=== PATIENT | female | born 1970 | race Asian ===

== ENCOUNTER 2018-07-18 15:46 | Inpatient (IN) | payer OTHER ==
[~2018-07-18] VITALS: Ht 160 cm; Wt 93.0 kg
[2018-07-18 15:53] VITALS: BP_SYST 154
[2018-07-18] MEDS ORDERED: MORPHINE 4 MG/ML INJ. SYRINGE IVP ONE (17:30)
[2018-07-18] MEDS ORDERED: FUROSEMIDE 20 MG/2 ML VIAL IVP ONE (17:30)
[2018-07-18] MEDS ORDERED: IOHEXOL 100 ML IV ONE (17:38)
[2018-07-18 17:40] LABS: CALCIUM 7.9 mg/dL (8.4-11.0); CREATININE 1.16 mg/dL (0.55-1.30)
[2018-07-18 17:49] LABS: ALBUMIN 1.4 g/dL (3.4-4.8); TOTAL BILIRUBIN 0.2 mg/dL (0.0-1.0)
[2018-07-18 17:54] LABS: POTASSIUM 4.2 mmol/L (3.5-5.1)
[2018-07-18 18:04] LABS: PROTHROMBIN TIME 9.8 SECS (9.5-12.5)
[2018-07-18 18:21] LABS: MEAN CORPUSCULAR HEMOGLOBIN 26 pg (27-31); MEAN CORPUSCULAR VOLUME 81 fL (79.0-98.0); WHITE BLOOD COUNT (AUTO) 4.3 K/uL (4.8-10.8)
[2018-07-18 18:23] LABS: EOSINOPHILS # (AUTO) 0.1 K/uL (0.0-0.4); HEMATOCRIT 44.4 % (36-48); HEMOGLOBIN 14.5 g/dL (12.0-16.0); MEAN CORPUSCULAR HGB CONC 33 % (32-36); NEUTROPHILS # (AUTO) 3.3 K/uL (1.8-7.7); RED BLOOD CELL COUNT(AUTO) 5.47 MIL/uL (4.2-6.2); RED CELL DISTRIBUTION WIDTH 14.4 % (9.0-15.0)
[2018-07-18 18:24] LABS: BASOPHILS % (AUTO) 0.7 % (0.0-2.0); EOSINOPHILS % (AUTO) 1.9 % (0.0-4.0); LYMPHOCYTES # (AUTO) 0.5 K/uL (1.0-5.5); LYMPHOCYTES % (AUTO) 11.3 % (20.5-51.5); MONOCYTES # (AUTO) 0.5 K/uL (0.0-1.0); MONOCYTES % (AUTO) 10.7 % (1.7-9.3); NEUTROPHILS % (AUTO) 75.4 % (40.0-70.0); PLATELET COUNT (AUTO) 94 K/uL (130-430)
[2018-07-18] MEDS ORDERED: AZIT250T PO (19:44)
[2018-07-18] MEDS ORDERED: AMLO5TAB4 PO (19:44)
[2018-07-18] MEDS ORDERED: HYDR25TA4 PO (19:44)
[2018-07-18] MEDS ORDERED: LOPERAMIDE HCL 2 MG CAPSULE PO PRN (21:00)
[2018-07-18] MEDS ORDERED: DIPHENHYDRAMINE INJ 50 MG/ML VIAL IVP PRN (21:00)
[2018-07-18] MEDS ORDERED: MORPHINE 4 MG/ML INJ. SYRINGE IVP PRN ×2 (21:00)
[2018-07-18] MEDS ORDERED: ONDANSETRON HCL 4 MG/2 ML VIAL IVP PRN (21:00)
[2018-07-18] MEDS ORDERED: CARVEDILOL 12.5 MG TABLET (COREG) PO ONE (21:15)
[2018-07-18] MEDS ORDERED: metroNIDAZOLE 500 mg/NS 200 ML IV ONE (21:25)
[2018-07-18] MEDS ORDERED: CIPROFLOXACIN LACT 400 MG/D5W 200 ML IV ONE (21:26)
[2018-07-18] MEDS: metroNIDAZOLE 500 mg/NS 100 ML IV SCH (21:49)
[2018-07-18] MEDS: CIPROFLOXACIN LACT 400 MG/D5W 200 ML IV SCH (21:50)
[2018-07-19 05:31] VITALS: BP_SYST 168
[2018-07-19] MEDS: metroNIDAZOLE 500 mg/NS 100 ML IV SCH ×3 (06:48→22:07)
[2018-07-19 07:23] LABS: INR 0.9 (0.8-1.2); PROTHROMBIN TIME 9.1 SECS (9.5-12.5)
[2018-07-19 07:42] LABS: ALBUMIN 1.1 g/dL (3.4-4.8); CALCIUM 7.7 mg/dL (8.4-11.0); CREATININE 1.32 mg/dL (0.55-1.30); FREE T4 (FREE THYROXINE) 0.6 ng/dL (0.6-1.6); PHOSPHORUS 4.6 mg/dL (2.7-4.5); POTASSIUM 4.2 mmol/L (3.5-5.1); THYROID STIMULATING HORMONE 1.95 uIu/mL (0.34-4.82); TOTAL BILIRUBIN 0.3 mg/dL (0.0-1.0)
[2018-07-19 08:00] VITALS: BP_SYST 134
[2018-07-19] MEDS ORDERED: LISINOPRIL 10 MG TABLET (PRINIVIL) PO SCH (09:00)
[2018-07-19 09:21] LABS: HEMOGLOBIN 12.6 g/dL (12.0-16.0); RED BLOOD CELL COUNT(AUTO) 4.73 MIL/uL (4.2-6.2); WHITE BLOOD COUNT (AUTO) 3.7 K/uL (4.8-10.8)
[2018-07-19 09:22] LABS: HEMATOCRIT 38.9 % (36-48); MEAN CORPUSCULAR HEMOGLOBIN 27 pg (27-31); MEAN CORPUSCULAR HGB CONC 33 % (32-36); MEAN CORPUSCULAR VOLUME 82 fL (79.0-98.0); PLATELET COUNT (AUTO) 75 K/uL (130-430); RED CELL DISTRIBUTION WIDTH 14.5 % (9.0-15.0)
[2018-07-19 09:50] LABS: BASOPHILS % (AUTO) 0.5 % (0.0-2.0); EOSINOPHILS % (AUTO) 1.3 % (0.0-4.0); LYMPHOCYTES # (AUTO) 0.6 K/uL (1.0-5.5); LYMPHOCYTES % (AUTO) 15.8 % (20.5-51.5); MONOCYTES # (AUTO) 0.6 K/uL (0.0-1.0); MONOCYTES % (AUTO) 14.9 % (1.7-9.3); NEUTROPHILS # (AUTO) 2.5 K/uL (1.8-7.7); NEUTROPHILS % (AUTO) 67.5 % (40.0-70.0)
[2018-07-19] MEDS: CIPROFLOXACIN LACT 400 MG/D5W 200 ML IV SCH (10:20)
[2018-07-19] MEDS ORDERED: CHOLECALCIFEROL (VITAMIN D3) 2,000 UNIT TABLET PO ONE (11:45)
[2018-07-19] MEDS ORDERED: NEPHROVITE, (FOLIC ACID/VITAMIN B COMP W-C 1 TAB) PO ONE (11:45)
[2018-07-19 12:57] VITALS: BP_SYST 151
[2018-07-19 15:58] LABS: BILIRUBIN,URINE 1+ (NEGATIVE); BLOOD, URINE 3+ (NEGATIVE); CLARITY/URINE CLEAR (CLEAR); COLOR,URINE YELLOW (YELLOW); GLUCOSE,URINE NEGATIVE (NEGATIVE); KETONES,URINE NEGATIVE (NEGATIVE); LEUKOCYTE ESTERASE ,URINE NEGATIVE (NEGATIVE); NITRITE, URINE NEGATIVE (NEGATIVE); PH,URINE 5.5 (5.0-8.0); PROTEIN URINE 3+ (NEGATIVE); UROBILINOGEN,URINE 0.2 (0.2-1.0)
[2018-07-19 16:02] LABS: BACTERIA,URINE MODERATE /HPF (None Seen)
[2018-07-19 16:03] LABS: MUCUS,URINE 1+ /LPF (None Seen)
[2018-07-19 17:17] VITALS: BP_SYST 144
[2018-07-19] MEDS: ACETAMINOPHEN 325 MG TABLET PO PRN (19:01)
[2018-07-19] MEDS ORDERED: FUROSEMIDE 40 MG TABLET PO SCH (21:00)
[2018-07-19] MEDS: CIPROFLOXACIN HCL 500 MG TABLET PO SCH (22:06)
[2018-07-19 22:07] VITALS: BP_SYST 144
[2018-07-20 00:17] VITALS: BP_SYST 155
[2018-07-20] MEDS: metroNIDAZOLE 500 mg/NS 100 ML IV SCH ×3 (05:03→21:50)
[2018-07-20 07:37] LABS: HEMATOCRIT 40.6 % (36-48); HEMOGLOBIN 12.9 g/dL (12.0-16.0); MEAN CORPUSCULAR HEMOGLOBIN 26 pg (27-31); MEAN CORPUSCULAR VOLUME 82 fL (79.0-98.0); RED BLOOD CELL COUNT(AUTO) 4.96 MIL/uL (4.2-6.2); WHITE BLOOD COUNT (AUTO) 3.2 K/uL (4.8-10.8)
[2018-07-20 07:38] LABS: BASOPHILS % (AUTO) 0.5 % (0.0-2.0); EOSINOPHILS # (AUTO) 0.1 K/uL (0.0-0.4); EOSINOPHILS % (AUTO) 2.6 % (0.0-4.0); LYMPHOCYTES # (AUTO) 0.6 K/uL (1.0-5.5); LYMPHOCYTES % (AUTO) 18.2 % (20.5-51.5); MEAN CORPUSCULAR HGB CONC 32 % (32-36); MONOCYTES # (AUTO) 0.5 K/uL (0.0-1.0); MONOCYTES % (AUTO) 15.9 % (1.7-9.3); PLATELET COUNT (AUTO) 90 K/uL (130-430); RED CELL DISTRIBUTION WIDTH 14.6 % (9.0-15.0)
[2018-07-20 07:41] LABS: CALCIUM 7.7 mg/dL (8.4-11.0); CREATININE 1.52 mg/dL (0.55-1.30)
[2018-07-20 08:00] VITALS: BP_SYST 157
[2018-07-20] MEDS ORDERED: FUROSEMIDE 40 MG TABLET PO SCH (09:00)
[2018-07-20] MEDS: LISINOPRIL 10 MG TABLET (PRINIVIL) PO SCH (09:19)
[2018-07-20] MEDS: CHOLECALCIFEROL (VITAMIN D3) 2,000 UNIT TABLET PO SCH (09:20)
[2018-07-20] MEDS: LACTOBACILLUS RHAMNOSUS GG 1 CAP CAPSULE PO SCH ×2 (09:20→21:49)
[2018-07-20] MEDS: NEPHROVITE, (FOLIC ACID/VITAMIN B COMP W-C 1 TAB) PO SCH (09:20)
[2018-07-20] MEDS: CIPROFLOXACIN HCL 500 MG TABLET PO SCH ×2 (10:45→21:49)
[2018-07-20 11:22] LABS: NEUTROPHILS % (AUTO) 62.8 % (40.0-70.0)
[2018-07-20 12:45] VITALS: BP_SYST 167
[2018-07-20] MEDS ORDERED: cloNIDine HCL 0.1 MG TABLET PO PRN (16:00)
[2018-07-20 16:02] VITALS: BP_SYST 168
[2018-07-20] MEDS ORDERED: CARVEDILOL 12.5 MG TABLET (COREG) PO ONE (16:45)
[2018-07-20 21:44] VITALS: BP_SYST 138
[2018-07-20] MEDS: ACETAMINOPHEN 325 MG TABLET PO PRN (23:24)
[2018-07-21 01:29] VITALS: BP_SYST 126
[2018-07-21] MEDS: metroNIDAZOLE 500 mg/NS 100 ML IV SCH ×3 (05:53→21:20)
[2018-07-21 06:45] LABS: CALCIUM 7.9 mg/dL (8.4-11.0); CREATININE 1.68 mg/dL (0.55-1.30)
[2018-07-21 06:49] LABS: BILIRUBIN,URINE 1+ (NEGATIVE); BLOOD, URINE 3+ (NEGATIVE); COLOR,URINE YELLOW (YELLOW); GLUCOSE,URINE NEGATIVE (NEGATIVE); KETONES,URINE TRACE (NEGATIVE); LEUKOCYTE ESTERASE ,URINE NEGATIVE (NEGATIVE); NITRITE, URINE POSITIVE (NEGATIVE); PH,URINE 5.5 (5.0-8.0); PROTEIN URINE 3+ (NEGATIVE); UROBILINOGEN,URINE 0.2 (0.2-1.0)
[2018-07-21 07:00] LABS: ALBUMIN 1.3 g/dL (3.4-4.8); PHOSPHORUS 4.9 mg/dL (2.7-4.5); TOTAL BILIRUBIN 0.2 mg/dL (0.0-1.0)
[2018-07-21 07:58] VITALS: BP_SYST 160
[2018-07-21 08:02] LABS: HEMATOCRIT 41.4 % (36-48); HEMOGLOBIN 13.3 g/dL (12.0-16.0); RED BLOOD CELL COUNT(AUTO) 5.02 MIL/uL (4.2-6.2); WHITE BLOOD COUNT (AUTO) 3.2 K/uL (4.8-10.8)
[2018-07-21 08:03] LABS: MEAN CORPUSCULAR HEMOGLOBIN 27 pg (27-31); MEAN CORPUSCULAR HGB CONC 32 % (32-36); MEAN CORPUSCULAR VOLUME 83 fL (79.0-98.0); PLATELET COUNT (AUTO) 110 K/uL (130-430); RED CELL DISTRIBUTION WIDTH 14.6 % (9.0-15.0)
[2018-07-21 08:04] LABS: BASOPHILS % (AUTO) 0.8 % (0.0-2.0); EOSINOPHILS # (AUTO) 0.1 K/uL (0.0-0.4); EOSINOPHILS % (AUTO) 3.1 % (0.0-4.0); LYMPHOCYTES # (AUTO) 0.8 K/uL (1.0-5.5); LYMPHOCYTES % (AUTO) 23.8 % (20.5-51.5); MONOCYTES # (AUTO) 0.5 K/uL (0.0-1.0); MONOCYTES % (AUTO) 15.7 % (1.7-9.3); NEUTROPHILS # (AUTO) 1.8 K/uL (1.8-7.7); NEUTROPHILS % (AUTO) 56.6 % (40.0-70.0)
[2018-07-21 08:56] LABS: BACTERIA,URINE MODERATE /HPF (None Seen); CLARITY/URINE SLIGHTLY HAZY (CLEAR); RBC,URINE 20-50 /HPF (0-3); WBC,URINE 0-3 /HPF (0-3)
[2018-07-21] MEDS: LACTOBACILLUS RHAMNOSUS GG 1 CAP CAPSULE PO SCH ×2 (09:14→21:20)
[2018-07-21] MEDS: CARVEDILOL 12.5 MG TABLET (COREG) PO SCH ×2 (09:14→21:21)
[2018-07-21] MEDS: NEPHROVITE, (FOLIC ACID/VITAMIN B COMP W-C 1 TAB) PO SCH (09:15)
[2018-07-21] MEDS: CHOLECALCIFEROL (VITAMIN D3) 2,000 UNIT TABLET PO SCH (09:16)
[2018-07-21] MEDS: LISINOPRIL 10 MG TABLET (PRINIVIL) PO SCH (09:16)
[2018-07-21] MEDS: CIPROFLOXACIN HCL 500 MG TABLET PO SCH ×2 (09:17→21:20)
[2018-07-21 11:54] VITALS: BP_SYST 144
[2018-07-21 16:06] VITALS: BP_SYST 136
[2018-07-21 20:00] VITALS: BP_SYST 143
[2018-07-21] MEDS: ACETAMINOPHEN 325 MG TABLET PO PRN (21:19)
[2018-07-22 00:47] VITALS: BP_SYST 128
[2018-07-22] MEDS: metroNIDAZOLE 500 mg/NS 100 ML IV SCH ×2 (05:13→13:01)
[2018-07-22] MEDS: CHOLECALCIFEROL (VITAMIN D3) 2,000 UNIT TABLET PO SCH ×2 (08:10→20:58)
[2018-07-22] MEDS: NEPHROVITE, (FOLIC ACID/VITAMIN B COMP W-C 1 TAB) PO SCH (08:10)
[2018-07-22] MEDS: CARVEDILOL 12.5 MG TABLET (COREG) PO SCH ×2 (08:11→20:58)
[2018-07-22] MEDS: LACTOBACILLUS RHAMNOSUS GG 1 CAP CAPSULE PO SCH ×2 (08:11→20:58)
[2018-07-22] MEDS: LISINOPRIL 10 MG TABLET (PRINIVIL) PO SCH (08:12)
[2018-07-22 08:13] VITALS: BP_SYST 160
[2018-07-22 09:11] LABS: POTASSIUM 4.2 mmol/L (3.5-5.1)
[2018-07-22 09:21] LABS: CALCIUM 7.8 mg/dL (8.4-11.0); CREATININE 1.59 mg/dL (0.55-1.30)
[2018-07-22] MEDS: CIPROFLOXACIN HCL 500 MG TABLET PO SCH (10:07)
[2018-07-22 11:38] LABS: WHITE BLOOD COUNT (AUTO) 4.2 K/uL (4.8-10.8)
[2018-07-22 11:39] LABS: HEMATOCRIT 42.2 % (36-48); HEMOGLOBIN 13.5 g/dL (12.0-16.0); MEAN CORPUSCULAR HEMOGLOBIN 26 pg (27-31); MEAN CORPUSCULAR HGB CONC 32 % (32-36); MEAN CORPUSCULAR VOLUME 82 fL (79.0-98.0); PLATELET COUNT (AUTO) 119 K/uL (130-430); RED BLOOD CELL COUNT(AUTO) 5.14 MIL/uL (4.2-6.2); RED CELL DISTRIBUTION WIDTH 14.7 % (9.0-15.0)
[2018-07-22 11:41] LABS: BASOPHILS % (AUTO) 0.7 % (0.0-2.0); EOSINOPHILS # (AUTO) 0.1 K/uL (0.0-0.4); EOSINOPHILS % (AUTO) 2.1 % (0.0-4.0); LYMPHOCYTES # (AUTO) 0.5 K/uL (1.0-5.5); LYMPHOCYTES % (AUTO) 12.6 % (20.5-51.5); MONOCYTES # (AUTO) 0.5 K/uL (0.0-1.0); MONOCYTES % (AUTO) 12.2 % (1.7-9.3); NEUTROPHILS % (AUTO) 72.4 % (40.0-70.0)
[2018-07-22 12:27] VITALS: BP_SYST 151
[2018-07-22 14:00] VITALS: BP_SYST 151
[2018-07-22] MEDS: cefTRIAXone 1 GM in D5W 50 ML IV SCH (15:18)
[2018-07-22] MEDS: IPRATROPIUM/ALBUTEROL SULFATE 3 ML AMPUL.NEB (DUONEB) INH PRN (15:28)
[2018-07-22 16:49] VITALS: BP_SYST 163
[2018-07-22 20:00] VITALS: BP_SYST 154
[2018-07-22] MEDS: ACETAMINOPHEN 325 MG TABLET PO PRN (20:57)
[2018-07-23] VITALS (8 sets, daily range): BP systolic 139–191
[2018-07-23] MEDS: IPRATROPIUM/ALBUTEROL SULFATE 3 ML AMPUL.NEB (DUONEB) INH PRN ×3 (03:35→16:14)
[2018-07-23 06:52] LABS: CALCIUM 7.8 mg/dL (8.4-11.0); CREATININE 1.67 mg/dL (0.55-1.30); POTASSIUM 4.2 mmol/L (3.5-5.1)
[2018-07-23] MEDS: LACTOBACILLUS RHAMNOSUS GG 1 CAP CAPSULE PO SCH ×2 (08:10→20:54)
[2018-07-23] MEDS: LISINOPRIL 10 MG TABLET (PRINIVIL) PO SCH (08:12)
[2018-07-23] MEDS: CARVEDILOL 12.5 MG TABLET (COREG) PO SCH (08:13)
[2018-07-23] MEDS: NEPHROVITE, (FOLIC ACID/VITAMIN B COMP W-C 1 TAB) PO SCH (08:13)
[2018-07-23] MEDS: CHOLECALCIFEROL (VITAMIN D3) 2,000 UNIT TABLET PO SCH ×2 (08:13→20:54)
[2018-07-23] MEDS ORDERED: NEPHROVITE, (FOLIC ACID/VITAMIN B COMP W-C 1 TAB) PO SCH (12:45)
[2018-07-23] MEDS ORDERED: cloNIDine HCL 0.1 MG TABLET PO PRN (12:45)
[2018-07-23] MEDS ORDERED: PROMETHAZINE-DM 6.25 MG-15 MG/5 ML UDC PO PRN (12:45)
[2018-07-23] MEDS: cefTRIAXone 1 GM in D5W 50 ML IV SCH (14:57)
[2018-07-23] MEDS: CARVEDILOL 25 MG TABLET (COREG) PO SCH (20:54)
[2018-07-23] MEDS: ACETAMINOPHEN 325 MG TABLET PO PRN (21:12)
[2018-07-24 00:47] VITALS: BP_SYST 146
[2018-07-24] MEDS: IPRATROPIUM/ALBUTEROL SULFATE 3 ML AMPUL.NEB (DUONEB) INH PRN ×2 (05:53→18:18)
[2018-07-24 06:48] LABS: CALCIUM 8.1 mg/dL (8.4-11.0); CREATININE 2.11 mg/dL (0.55-1.30); POTASSIUM 4.1 mmol/L (3.5-5.1)
[2018-07-24 07:41] VITALS: BP_SYST 159
[2018-07-24 08:15] LABS: EOSINOPHILS % (AUTO) 4.1 % (0.0-4.0); HEMATOCRIT 42.5 % (36-48); HEMOGLOBIN 13.6 g/dL (12.0-16.0); LYMPHOCYTES % (AUTO) 15.4 % (20.5-51.5); MEAN CORPUSCULAR HEMOGLOBIN 26 pg (27-31); MEAN CORPUSCULAR HGB CONC 32 % (32-36); MEAN CORPUSCULAR VOLUME 82 fL (79.0-98.0); MONOCYTES % (AUTO) 14.1 % (1.7-9.3); PLATELET COUNT (AUTO) 114 K/uL (130-430); RED CELL DISTRIBUTION WIDTH 14.7 % (9.0-15.0); WHITE BLOOD COUNT (AUTO) 4.3 K/uL (4.8-10.8)
[2018-07-24 08:16] LABS: BASOPHILS % (AUTO) 0.4 % (0.0-2.0); EOSINOPHILS # (AUTO) 0.2 K/uL (0.0-0.4); LYMPHOCYTES # (AUTO) 0.7 K/uL (1.0-5.5); MONOCYTES # (AUTO) 0.6 K/uL (0.0-1.0); NEUTROPHILS # (AUTO) 2.8 K/uL (1.8-7.7)
[2018-07-24] MEDS: LISINOPRIL 10 MG TABLET (PRINIVIL) PO SCH (08:36)
[2018-07-24] MEDS: NEPHROVITE, (FOLIC ACID/VITAMIN B COMP W-C 1 TAB) PO SCH (08:37)
[2018-07-24] MEDS: CARVEDILOL 25 MG TABLET (COREG) PO SCH ×2 (08:37→21:08)
[2018-07-24] MEDS: CHOLECALCIFEROL (VITAMIN D3) 2,000 UNIT TABLET PO SCH ×2 (08:38→21:08)
[2018-07-24] MEDS: LACTOBACILLUS RHAMNOSUS GG 1 CAP CAPSULE PO SCH ×2 (08:38→21:08)
[2018-07-24 12:51] VITALS: BP_SYST 155
[2018-07-24] MEDS: cefTRIAXone 1 GM in D5W 50 ML IV SCH (14:36)
[2018-07-24] MEDS ORDERED: NACL 0.9% 1,000 ML IV SCH (16:00)
[2018-07-24 16:52] VITALS: BP_SYST 148
[2018-07-24] MEDS: ACETAMINOPHEN 325 MG TABLET PO PRN (18:03)
[2018-07-24 21:08] VITALS: BP_SYST 158
[2018-07-25] MEDS: ACETAMINOPHEN 325 MG TABLET PO PRN ×3 (00:24→22:33)
[2018-07-25 01:51] VITALS: BP_SYST 140
[2018-07-25] MEDS: IPRATROPIUM/ALBUTEROL SULFATE 3 ML AMPUL.NEB (DUONEB) INH PRN ×3 (04:48→23:06)
[2018-07-25 06:15] LABS: CALCIUM 7.7 mg/dL (8.4-11.0); CREATININE 2.43 mg/dL (0.55-1.30); POTASSIUM 4.9 mmol/L (3.5-5.1)
[2018-07-25 06:22] LABS: ALBUMIN 1.1 g/dL (3.4-4.8); TOTAL BILIRUBIN 0.2 mg/dL (0.0-1.0)
[2018-07-25 07:49] LABS: HEMATOCRIT 38.2 % (36-48); HEMOGLOBIN 12.5 g/dL (12.0-16.0); MEAN CORPUSCULAR HEMOGLOBIN 27 pg (27-31); MEAN CORPUSCULAR HGB CONC 33 % (32-36); MEAN CORPUSCULAR VOLUME 83 fL (79.0-98.0); RED BLOOD CELL COUNT(AUTO) 4.62 MIL/uL (4.2-6.2); RED CELL DISTRIBUTION WIDTH 14.3 % (9.0-15.0)
[2018-07-25 07:50] LABS: PLATELET COUNT (AUTO) 119 K/uL (130-430)
[2018-07-25] MEDS: CHOLECALCIFEROL (VITAMIN D3) 2,000 UNIT TABLET PO SCH ×2 (08:15→20:06)
[2018-07-25] MEDS: CARVEDILOL 25 MG TABLET (COREG) PO SCH ×2 (08:15→20:04)
[2018-07-25] MEDS: NEPHROVITE, (FOLIC ACID/VITAMIN B COMP W-C 1 TAB) PO SCH (08:15)
[2018-07-25] MEDS: LACTOBACILLUS RHAMNOSUS GG 1 CAP CAPSULE PO SCH ×2 (08:15→20:04)
[2018-07-25 11:03] LABS: BASOPHILS % (MANUAL) 0 % (0-2); EOSINOPHILS % (MANUAL) 5 % (0-7); LYMPHOCYTES % (MANUAL) 19 % (20-46); MONOCYTES % (MANUAL) 11 % (0-11)
[2018-07-25 12:52] VITALS: BP_SYST 122
[2018-07-25 15:05] VITALS: BP_SYST 155
[2018-07-25] MEDS: cefTRIAXone 1 GM in D5W 50 ML IV SCH (15:05)
[2018-07-25 16:45] VITALS: BP_SYST 155
[2018-07-25 19:47] VITALS: BP_SYST 182
[2018-07-25 22:29] VITALS: BP_SYST 140
[2018-07-26 06:08] VITALS: BP_SYST 163
[2018-07-26 08:04] VITALS: BP_SYST 157
[2018-07-26] MEDS: CHOLECALCIFEROL (VITAMIN D3) 2,000 UNIT TABLET PO SCH ×2 (09:02→21:18)
[2018-07-26] MEDS: NEPHROVITE, (FOLIC ACID/VITAMIN B COMP W-C 1 TAB) PO SCH (09:02)
[2018-07-26] MEDS: LACTOBACILLUS RHAMNOSUS GG 1 CAP CAPSULE PO SCH ×2 (09:02→21:17)
[2018-07-26] MEDS: CARVEDILOL 25 MG TABLET (COREG) PO SCH ×2 (09:03→21:18)
[2018-07-26] MEDS: IPRATROPIUM/ALBUTEROL SULFATE 3 ML AMPUL.NEB (DUONEB) INH PRN ×2 (10:52→20:29)
[2018-07-26 11:02] LABS: CALCIUM 7.8 mg/dL (8.4-11.0); CREATININE 2.5 mg/dL (0.55-1.30); POTASSIUM 5.4 mmol/L (3.5-5.1)
[2018-07-26] MEDS ORDERED: SODIUM POLYSTYRENE SULFONATE 15 GM/60 ML UDBTL PO ONE (12:15)
[2018-07-26 13:12] VITALS: BP_SYST 138
[2018-07-26] MEDS: ACETAMINOPHEN 325 MG TABLET PO PRN (14:46)
[2018-07-26 16:51] VITALS: BP_SYST 132
[2018-07-26 20:00] VITALS: BP_SYST 156
[2018-09-05 15:06] LABS: CREATININE, URINE 205.2 mg/dL
[2018-09-05 15:08] LABS: MICROALBUMIN URINE RANDOM 5499.8 ug/ml (NOT ESTABLISHED); MICROALBUMIN/CREAT RATIO, UR 2680.2 MG/G CRE (0.0-30.0)
== END 2018-07-26 23:30 | disposition short-term general hospital (02) | DRG 682 ==
LOC: SED 15:46 → STU 19:47 → SMU 07-19 12:01
PROVIDERS: ADMIT Internal Medicine; ATTEND Internal Medicine
DX: N17.0 Acute kidney failure with tubular necrosis (principal); E43 Unspecified severe protein-calorie malnutrition; D69.3 Immune thrombocytopenic purpura; N39.0 Urinary tract infection, site not specified; M35.1 Other overlap syndromes; K52.9 Noninfective gastroenteritis and colitis, unspecified; N04.9 Nephrotic syndrome with unspecified morphologic changes; M32.14 Glomerular disease in systemic lupus erythematosus; I10 Essential (primary) hypertension; R80.9 Proteinuria, unspecified; D72.819 Decreased white blood cell count, unspecified; E87.5 Hyperkalemia; E66.9 Obesity, unspecified; R21 Rash and other nonspecific skin eruption; N28.9 Disorder of kidney and ureter, unspecified; Z88.1 Allergy status to other antibiotic agents; Z79.899 Other long term (current) drug therapy; Z90.721 Acquired absence of ovaries, unilateral; Z82.49 Family history of ischemic heart disease and other diseases of the circulatory system; Z83.2 Family history of diseases of the blood and blood-forming organs and certain disorders involving the immune mechanism; Z68.36 Body mass index [BMI] 36.0-36.9, adult
CPT/HCPCS: 36415; 71045; 71270-TC; 76770; 78579; 78580-TC; 80048; 80053; 80061; 81000-TC; 82043; 82140-TC; 82306; 82550-TC; 82570; 82607; 83690-TC; 83735-TC; 83874; 83880; 84100-TC; 84439; 84443-TC; 84484; 84703; 85007; 85025; 85027; 85379; 85610-TC; 85730-TC; 86038; 87045-TC; 87046; 87086; 87230-TC; 89055; 93005; 93306; 93970; 94640; 94760; 96374; 96375; 99285; A9539; A9540; G0378; J0696; J0744; J1200; J1940; J2270; J3490; J7030; J7060; J7620; Q9967

== ENCOUNTER 2018-10-10 15:51 | Outpatient (CLI) | payer OTHER ==
[~2018-10-10 15:51] MED LIST: AMLO5TAB4 PO; AZIT250T PO; HYDR25TA4 PO
== END 2018-10-10 21:19 | disposition home or self-care (01) ==
LOC: SRD 15:51
PROVIDERS: ATTEND Internal Medicine
DX: J18.9 Pneumonia, unspecified organism (principal)
CPT/HCPCS: 71046-TC

== ENCOUNTER 2023-10-08 13:21 | Emergency (ER) | payer OTHER, BC ==
[~2023-10-08] VITALS: Ht 157.5 cm; Wt 103.0 kg
[~2023-10-08 13:21] MED LIST changes: -AZIT250T PO; +ZIT250 PO
[2023-10-08 13:28] VITALS: BP_SYST 147; PULSE 66; RESP 16; TEMP 97.9; O2SAT 98
[2023-10-08 15:04] LABS: BASOPHILS % (AUTO) 0.4 % (0.0-2.0); EOSINOPHILS # (AUTO) 0.2 K/uL (0.0-0.4); EOSINOPHILS % (AUTO) 2.2 % (0.0-4.0); HEMATOCRIT 40.7 % (36-48); HEMOGLOBIN 13.3 g/dL (12.0-16.0); LYMPHOCYTES # (AUTO) 1.3 K/uL (1.0-5.5); LYMPHOCYTES % (AUTO) 18.1 % (20.5-51.5); MEAN CORPUSCULAR HEMOGLOBIN 28 pg (27-31); MEAN CORPUSCULAR HGB CONC 33 % (32-36); MEAN CORPUSCULAR VOLUME 86 fL (79.0-98.0); MONOCYTES # (AUTO) 0.7 K/uL (0.0-1.0); MONOCYTES % (AUTO) 9.3 % (1.7-9.3); NEUTROPHILS # (AUTO) 5.1 K/uL (1.8-7.7); PLATELET COUNT (AUTO) 174 K/uL (130-430); RED BLOOD CELL COUNT(AUTO) 4.75 MIL/uL (4.2-6.2); RED CELL DISTRIBUTION WIDTH 13.1 % (9.0-15.0); WHITE BLOOD COUNT (AUTO) 7.3 K/uL (4.8-10.8)
[2023-10-08 15:18] LABS: ANION GAP 3 (5-15); CALCIUM 8.7 mg/dL (8.4-11.0); CARBON DIOXIDE 34 mmol/L (23-29); CHLORIDE 105 mmol/L (98-107); CREATINE KINASE, TOTAL 91 U/L (26-192); CREATININE 0.78 mg/dL (0.55-1.30); GFR AFRICAN AMERICAN 99 mL/min (>90); GLUCOSE 98 mg/dL (74-106); POTASSIUM 4.4 mmol/L (3.5-5.1); SODIUM SERUM 142 mmol/L (136-145); UREA NITROGEN, BLOOD 11 mg/dL (8-21)
[2023-10-08 15:20] LABS: GFR NON AFRICAN-AMERICAN 82 mL/min (>90)
[2023-10-08] MEDS ORDERED: IBUP-1969 PO (15:28)
[2023-10-08 15:37] VITALS: BP_SYST 133; PULSE 64; RESP 19; TEMP 97.7; O2SAT 96
== END 2023-10-08 15:36 | disposition home or self-care (01) ==
LOC: SED 13:21
DX: R07.89 Other chest pain (principal); J44.9 Chronic obstructive pulmonary disease, unspecified; I10 Essential (primary) hypertension; Z88.1 Allergy status to other antibiotic agents; Z88.8 Allergy status to other drugs, medicaments and biological substances; Z88.5 Allergy status to narcotic agent; Z79.899 Other long term (current) drug therapy; Z79.2 Long term (current) use of antibiotics; V89.2XXA Person injured in unspecified motor-vehicle accident, traffic, initial encounter; Y93.89 Activity, other specified; Y92.89 Other specified places as the place of occurrence of the external cause; Y99.8 Other external cause status
CPT/HCPCS: 36415; 71045; 80048; 82550; 84484; 85025; 93005; 99285